=== PATIENT | male | born 1955 | race Caucasian/White ===

== ENCOUNTER → 2019-04-14 | Outpatient (CLI) | payer OTHER ==
--- NOTE | 2019-04-14 13:05 | RADIOLOGY REPORT (SQ) ---
EXAM DESCRIPTION: MRI LUMBAR SPINE WITHOUT COMPLETED DATE/TIME: 04/14/2019 12:24 pm REASON FOR STUDY: LUMBAR RADICULOPATHY COMPARISON: None. TECHNIQUE: Sagittal and Axial imaging includes T1, T2, STIR and gradient echo sequences. Coronal T2/ HASTE imaging. LIMITATIONS: None. FINDINGS: VISUALIZED UPPER ABDOMEN: Limited evaluation. No acute or suspicious findings suggested. SEGMENTATION: No transitional anatomy. The lowest well-developed disc space is labeled L5-S1. ALIGNMENT: Minimal grade 1 anterolisthesis of L3 over L4, and L4 over L5 VERTEBRAE: Central upper endplate depression at L2, without overall L2 vertebral body loss of height. Minimal edema adjacent to central upper endplate irregularity on sagittal STIR images 4 through 7. BONE MARROW: No marrow signal abnormalities worrisome for aggressive marrow replacement process DISC SIGNAL: Diffuse decreased T2 weighted intervertebral disc signal without disc space loss of heig ht POSTERIOR ELEMENTS: Generally intact. No pars defect evident. HARDWARE: None in the spine. CORD AND CONUS: Normal in size and signal intensity. Conus at the T12 level. SOFT TISSUES: No aortic aneurysm seen. No bulky retroperitoneal adenopathy or mass. No paraspinal mas s or fluid. T11-12: No central or foraminal stenosis T12-L1: No central or foraminal stenosis L1-L2: Mild diffuse posterior disc bulge and bony spurring with mild bilateral facet and ligament hyp ertrophy. Borderline central canal narrowing. Mild bilateral L2-1 2 foraminal narrowing without exi ting L1 nerve root impingement. L2-L3: Mild bilateral facet hypertrophy. No central or foraminal encroachment. L3-L4: Grade 1 anterolisthesis of L3 over L4, broad diffuse posterior disc bulging and bulky bilatera l facet hypertrophy cause mild central canal narrowing best shown on axial T2 images 16-18. There is mild bilateral L3-4 foraminal narrowing without exiting L3 nerve root impingement. L4-L5: Moderate central canal stenosis results from broad diffuse posterior disc bulging and bulky bi lateral facet and ligament hypertrophy. This is best shown on axial T2 image 23. Elsewhere at L4-5 there is mild bilateral foraminal narrowing without exiting L4 nerve root impingement L5-S1: Mild bilateral facet hypertrophy. No central or foraminal encroachment. SACRUM: Visualized upper sacrum intact. OTHER: No other significant findings. IMPRESSION: Degenerative changes as above TECHNICAL DOCUMENTATION: JOB ID: [id number] [employer]- All Rights Reserved Reading location - IP/workstation name: [email or web address]
== END ==
LOC: RAD 11:46
PROVIDERS: ATTEND Student in an Organized Health Care Education/Training Program
DX: M54.16 Radiculopathy, lumbar region (principal)
CPT/HCPCS: 72148

== ENCOUNTER → 2019-06-05 | Outpatient (CLI) | payer OTHER ==
--- NOTE | 2019-06-05 17:11 | RADIOLOGY REPORT (SQ) ---
EXAM DESCRIPTION: CERV SP 3 VIEW OR LESS COMPLETED DATE/TIME: 06/05/2019 4:43 pm REASON FOR STUDY: M54.12 RADICULOPATHY, CERVICAL REGION M54.12 RADICULOPATHY, CERVICAL REGION COMPARISON: None. NUMBER OF VIEWS: Three views. TECHNIQUE: An AP view was obtained. Lateral views were obtained in flexion and extension. LIMITATIONS: None. FINDINGS: MINERALIZATION: Normal. ALIGNMENT: Anatomic. 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 DISCS: The C5-6 disc space is narrowed. There is no disc space at C6-7. There is disc implant at C4 -5. HARDWARE: Anterior plate at C4-5 with screws into the vertebral bodies. SOFT TISSUES: No masses or calcifications. Lung apices clear. OTHER: No other significant finding. IMPRESSION: Prior ACDF. Congenital fusion. No instability. Facet arthropathy. TECHNICAL DOCUMENTATION: JOB ID: [id number] [facility]- All Rights Reserved Reading location - IP/workstation name: [email or web address]
--- NOTE | 2019-06-05 17:12 | RADIOLOGY REPORT (SQ) ---
EXAM DESCRIPTION: L SPINE FLEX/EXT ONLY COMPLETED DATE/TIME: 06/05/2019 4:43 pm REASON FOR STUDY: M54.12 RADICULOPATHY, CERVICAL REGION M54.12 RADICULOPATHY, CERVICAL REGION COMPARISON: None. NUMBER OF VIEWS: Three views TECHNIQUE: An AP view was obtained. Lateral views were obtained in flexion and extension. LIMITATIONS: None. FINDINGS: MINERALIZATION: Normal. SEGMENTATION: Normal. No transitional anatomy. ALIGNMENT: There is mild grade 1 anterolisthesis of L4 on L5. FLEXION/EXTENSION: No instability. VERTEBRAE: Maintained height. No fracture or worrisome bone lesion. DISCS: There is mild disc narrowing at L4-5. POSTERIOR ELEMENTS: Pedicles and facets are intact. No pars defect or posterior arch defects. HARDWARE: None in the spine. OTHER: No other significant finding. IMPRESSION: Mild grade 1 anterolisthesis of L4 on L5 with no instability on flexion/ extension. Deg enerative disc disease. TECHNICAL DOCUMENTATION: JOB ID: [id number] [employer]- All Rights Reserved Reading location - IP/workstation name: [email or web address]
--- NOTE | 2019-06-05 17:54 | RADIOLOGY REPORT (SQ) ---
EXAM DESCRIPTION: MRI CERVICAL SPINE WITHOUT COMPLETED DATE/TIME: 06/05/2019 5:09 pm REASON FOR STUDY: M54.12 RADICULOPATHY, CERVICAL REGION M54.12 RADICULOPATHY, CERVICAL REGION COMPARISON: Radiographs 06/05/2019 TECHNIQUE: Sagittal and Axial imaging includes T1, T2, STIR and gradient echo sequences. LIMITATIONS: None. FINDINGS: ALIGNMENT: Normal. VERTEBRAE: Intact. There appears to be congenital fusion at C6-7. BONE MARROW: Normal. No marrow replacement or reactive changes. DISCS: There is narrowing of the disc space at C5-6. There is no disc space at C6-7. There is mild disc narrowing at C3-4. HARDWARE: An anterior plate extends from C4-C5 with screws into the vertebral bodies. There is a dis c implant. CORD AND BASE OF BRAIN: Normal in size and signal intensity. SOFT TISSUES: No soft tissue masses. C1-C2: No significant spinal stenosis. C2-C3: No significant spinal stenosis. C3-C4: Shallow broad-based disc/osteophyte complex with no central canal or foraminal stenosis. C4-C5: Disc implant. No central canal or foraminal stenosis. C5-C6: Broad-based disc/osteophyte complex narrows the anterior CSF space. Does not deform the spina l cord. There is no foraminal stenosis. C6-C7: There is no discernible disc. No central canal or foraminal stenosis. C7-T1: No central canal or foraminal stenosis. UPPER THORACIC: Incompletely imaged. No significant spinal stenosis or exit foraminal stenosis. OTHER: No other significant finding. IMPRESSION: Surgical changes. Shallow disc/ osteophyte complexes at a couple of levels as described . There is no significant central canal or foraminal stenosis. TECHNICAL DOCUMENTATION: JOB ID: [id number] [employer]- All Rights Reserved Reading location - IP/workstation name: [email or web address]
== END ==
LOC: RAD 16:10
PROVIDERS: ATTEND Specialist
DX: M54.12 Radiculopathy, cervical region (principal)
CPT/HCPCS: 72040; 72120; 72141

== ENCOUNTER → 2019-09-02 | Outpatient (CLI) | payer MEDICARE, OTHER ==
--- NOTE | 2019-09-02 11:04 | RADIOLOGY REPORT (SQ) ---
EXAM DESCRIPTION: L SPINE FLEX/EXT ONLY COMPLETED DATE/TIME: 09/02/2019 10:41 am REASON FOR STUDY: LUMBAR RADICULOPATHY COMPARISON: 06/05/2019 TECHNIQUE: Lateral flexion and extension radiographs of the spine. NUMBER OF VIEWS: Two views. LIMITATIONS: None. FINDINGS: Normal alignment, maintained throughout flexion and extension. No abnormal motion. OTHER: There are postsurgical changes at 4 5. There is mild compression of the superior endplate of L2. This is stable from prior studies. IMPRESSION: NO RADIOGRAPHIC EVIDENCE OF ABNORMAL MOTION. TECHNICAL DOCUMENTATION: JOB ID: [id number] [employer]- All Rights Reserved Reading location - IP/workstation name: [email or web address]
--- NOTE | 2019-09-02 11:05 | RADIOLOGY REPORT (SQ) ---
EXAM DESCRIPTION: SPINE SINGLE VIEW COMPLETED DATE/TIME: 09/02/2019 10:41 am REASON FOR STUDY: LUMBAR RADICULOPATHY COMPARISON: None. NUMBER OF VIEWS: One view. TECHNIQUE: A frontal radiographic image acquired of the lumbar spine. LIMITATIONS: None. FINDINGS: Limited frontal view of the lumbar spine was submitted. There are postsurgical changes at L4-L5. Normal alignment in the frontal projection. IMPRESSION: Lytic frontal view of the lumbar spine reveals postsurgical changes at 4 5. Normal alig nment. TECHNICAL DOCUMENTATION: JOB ID: [id number] [employer]- All Rights Reserved Reading location - IP/workstation name: [email or web address]
== END ==
LOC: RAD 10:21
PROVIDERS: ATTEND Specialist
DX: M54.16 Radiculopathy, lumbar region (principal)
CPT/HCPCS: 72020; 72120

== ENCOUNTER → 2020-02-05 | Outpatient (CLI) | payer MEDICARE, OTHER ==
--- NOTE | 2020-02-05 11:56 | RADIOLOGY REPORT (SQ) ---
EXAM DESCRIPTION: L SPINE FLEX/EXT ONLY COMPLETED DATE/TIME: 02/05/2020 11:24 am REASON FOR STUDY: LUMBAR RADICULOPATHY COMPARISON: None. FINDINGS: Two view upright flexion-extension lumbar spine radiographs. Intact dorsal instrumentation at L4-5. Osteopenic. No abnormal motion detected. TECHNICAL DOCUMENTATION: JOB ID: [id number] Reading location - IP/workstation name: [facility] LIGHT ASSEMBLERDUANE L. WATERS [email or web address]
--- NOTE | 2020-02-05 11:58 | RADIOLOGY REPORT (SQ) ---
EXAM DESCRIPTION: SPINE SINGLE VIEW COMPLETED DATE/TIME: 02/05/2020 11:24 am REASON FOR STUDY: LUMBAR RADICULOPATHY COMPARISON: Upright flexion-extension radiographs same date. FINDINGS: Single standing AP view of the lumbar spine. Osteopenic. Lower lumbar instrumentation intact. No significant scoliosis. TECHNICAL DOCUMENTATION: JOB ID: [id number] Reading location - IP/workstation name: [email or web address]
== END ==
LOC: RAD 10:59
PROVIDERS: ATTEND Specialist
DX: M54.16 Radiculopathy, lumbar region (principal)
CPT/HCPCS: 72020; 72120